=== PATIENT | female | born 1925 | race Caucasian/White ===

== ENCOUNTER 2016-11-25 11:46 | Observation (INO) | payer MEDICARE, OTHER ==
--- NOTE | ~2016-11-25 | HP ---
History And Physical [place] [id number] [facility] [place]. [address] NAME: RENA VILLELA : [birth year] STATUS : ADM Zac PAT#: [id number] AGE: 89 ADM/REG DATE : 11/25/16 MR#: [id number] REPORT SERV DATE: 11/25/16 DICTATED BY: SULEIMAN ESPINOZA DATE: 11/25/16 REPORT STATUS : Draft TRANSCRIBED BY: MODL DATE: 11/25/16 DATE OF ADMISSION: 11/25/2016 REASON FOR ADMISSION: Syncope once again the third time in the last one year. This was at [facility]. Primary care doctor is unclear, used to see Dr. Burroughs, now sees Dr. Osvaldo Carpenter. HISTORY OF PRESENT ILLNESS: This is a very pleasant 89-year-old female. 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 Sees Dr. Carpenter. Has been stable for many years per history. Known history of a back surgery, unclear what type; cataract; eyelid surgery; and toe surgery. The patient comes in with a third episode of syncopizing in the past one year. The patient subjectively tells me the result of her workup in the past was that, she was taking in a zealous amount of antihypertensives and became orthostatic and syncopized. The patient recently had three teeth dentally extracted, was to start amoxicillin, has yet to do that for mitral valve prolapse prophylaxis. The patient was coming out of her car in the [facility] parking lot, felt a little "odd," walked into [facility], started having sweats, palpitations, fell the ground, and came to with positive syncope. Her CT of the brain here just shows subtle deep white matter change. She complains of positive chills. No fevers, no nausea, no vomiting, no diarrhea. Does have some pleuritic, musculoskeletal palpable reproducible chest pain more in the left sternal border. Left costophrenic region is tender to palpation upon compression. Troponin here is negative. The patient states she has some mild shortness of breath yet she is 99% on room air. No cough. Some positive increased frequency urination. Unclear, if she has had any dysuria. REVIEW OF SYSTEMS: Done, see HPI. Otherwise, negative. PAST MEDICAL AND PAST SURGICAL HISTORY: See above. ALLERGIES: APPARENTLY ARE NO KNOWN DRUG ALLERGIES. FAMILY HISTORY: As noted history of hypertension, diabetes, end-stage renal disease apparently in her children. Unclear etiology. HOME MEDICATIONS: See MAR. Continue what is relevant. SOCIAL HISTORY: Positive secondhand smoke exposure. No personal smoking, active drug use or past drug use, alcohol use either. History And Physical [address] [address] NAME: RENA VILLELA : [birth year] STATUS : ADM Zac PAT#: [id number] AGE: 89 ADM/REG DATE : 11/25/16 MR#: [id number] REPORT SERV DATE: 11/25/16 DICTATED BY: SULEIMAN ESPINOZA DATE: 11/25/16 REPORT STATUS : Draft TRANSCRIBED BY: SONIA DATE: 11/25/16 OBJECTIVE: VITAL SIGNS: Going to be 139/57, 98.2 temp, 75 pulse, 16 respirations, 98% on room air. GENERAL: No acute distress. HEENT: PERRLA. No scleral icterus. CARDIOVASCULAR: I did not appreciate any murmur. No carotid bruit auscultated. I did though at one point hear a regular rate, but irregular rhythm possibly consistent with her PACs on her EKG. RESPIRATORY: Decreased breath sounds bibasilarly. No wheezes. No crackles. ABDOMEN: She does have tenderness to palpation, more in the hypogastric region, periumbilical region, or root. No rebound tenderness. No peritoneal signs. EXTREMITIES: No edema, no ecchymosis. NEURO: She states it is 1917, then she laughed after I said was a 2017, she said yes. I do not know her baseline. This may be it. She says it is November. She says she is at [facility]. PSYCH: Unable to assess given her neuro status. LABORATORY DATA: White count 7.4, hemoglobin 12.2, 169,000 platelets, 3.6 potassium, 28 bicarb, 1.21 creatinine, 28 BUN, 139 sodium, 123 sugar. Troponin is negative. Urinalysis positive, 37 white blood cells, positive leukocyte esterase, but yet has significant amount of epithelial cells above 20. CT of the brain, see above. EKG, she has normal sinus rhythm, but then has some irregular PACs causing irregularity of her rhythm. I do not appreciate any ischemic ST-T changes. ASSESSMENT: 1. Syncope possibly due to orthostasis, possible occult arrhythmia. Not otherwise detected, exacerbated by sepsis likely causing orthostasis. 2. Urinary tract infection. 3. Recent dental extraction, is yet to start her amoxicillin for mitral valve prolapse prophylaxis. 4. Chronic kidney disease versus prerenal azotemia. 5. A and O really 3/4. She does not know the exact year. She does know she is at [facility], unclear if this is her baseline. PLAN: We will go ahead and admit this patient under observation. I will go ahead and panculture her given her syncope and UTI, pyuria present. That may just be a false positive given significant epithelial cells. As a result, I will repeat her urinalysis and rather start her on Augmentin for which she was supposed to take amoxicillin, she has not filled that yet. That will cover for anaerobic bacteria in her oropharynx, could not fully appreciate her teeth, would defer to the next physician at that time. Given this is her third episode, she may benefit if her echo and ultrasound of her carotids given recurrence is negative, a possible Holter monitor. We would try to get records from [facility] as well as her PCP regarding the status of her stable suspected brain tumor for which was not elucidated on her CT of the brain. See rest of my orders. All questions were answered. I will empirically place her on a statin in case her carotid ultrasound returns positive. Did complain of some reproducible musculoskeletal chest pain in the left costophrenic region and left sternal border. Troponin is negative. We will trend a couple more sets of CK-MB and History And Physical [address] [place]. [address] NAME: RENA VILLELA : [birth year] STATUS : ADM Zac PAT#: [id number] AGE: 89 ADM/REG DATE : 11/25/16 MR#: [id number] REPORT SERV DATE: 11/25/16 DICTATED BY: SULEIMAN ESPINOZA DATE: 11/25/16 REPORT STATUS : Draft TRANSCRIBED BY: MODL DATE: 11/25/16 cardiac risk factors would be secondhand smoke exposure, hypertension, and her age. Consider possible stress test if this were to ever occur again. All questions were answered. It took well over 60 minutes to do. Reference [employer]. WST/MODL Suleiman Espinoza DO / [id number] CC: Suleiman Espinoza DO
--- NOTE | ~2016-11-25 | DS ---
Discharge Summary [facility] [address] [place]. [address] NAME: RENA VILLELA : [birth year] STATUS : DIS Zac PAT#: [id number] AGE: 89 ADM/REG DATE : 11/25/16 MR#: [id number] REPORT SERV DATE: 11/27/16 DICTATED BY: ARJUN MCGOVERN II DATE: 11/26/16 REPORT STATUS : Draft TRANSCRIBED BY: MODL DATE: 11/26/16 ADMISSION DATE: 11/25/2016 DISCHARGE DATE: 11/26/2016 DISCHARGE DIAGNOSES: 1. Recurrent syncope this time likely orthostatic due to dehydration. 2. Mild prerenal azotemia, likely dehydration in the setting of recent tooth extraction and decreased p.o. intake. 3. Chronic diastolic congestive heart failure. 4. Mitral valve prolapse. 5. Hypertension. BRIEF HISTORY OF PRESENT ILLNESS: The patient is an 89-year-old female with the above past medical history who presented to [facility] due to syncopal episode concerning for orthostasis. For detailed history and physical examination, please see Dr. Rolon's note from 11/25/2016. HOSPITAL COURSE: On admission, the patient's vitals were essentially within normal limits. She was not bradycardic and her blood pressure was actually slightly high. Orthostatic blood pressure readings were between 150 and 170 systolic and heart rate between 77 and 90, so did not qualify for orthostasis. By the patient's symptoms, she had been not eating and drinking as much due to recent tooth extraction. She subsequently went to [facility] and became dizzy and had a slow controlled fall with assistance with family down to the ground and she is not sure she entirely passed out. Her symptoms quickly resolved and she had no symptoms of chest pain, shortness of breath or palpitations. Telemetry here has been unremarkable, EKG and sinus rhythm with infrequent PACs. Troponin has been normal. Her BUN was 28 and creatinine 1.21 which actually came down with IV fluids to 22 and 0.97. She has already had carotid duplex and echocardiogram last month with normal carotids and echo showing mild diastolic dysfunction. At this point in time it seems likely she was mildly dehydrated in the setting of recent procedure. So we will continue her home medications and encourage adequate hydration. She will need to follow with her PCP, Dr. Osvaldo Carpenter in one to two weeks. DISCHARGE MEDICATIONS: 1. Norvasc 5 mg p.o. b.i.d. 2. Amoxicillin 500 mg t.i.d. to complete 7 days of therapy which was started on 11/25. 3. Vitamin D 5000 units p.o. daily. 4. Lopressor 12.5 mg p.o. b.i.d. 5. Clonidine 0.1 mg p.o. b.i.d. 6. Garlic tab daily. 7. Symbicort two puffs inhaled daily p.r.n. shortness of breath. 8. Centrum tab daily. 9. Probiotic daily. DISCHARGE INSTRUCTIONS: The patient will follow Dr. Osvaldo Carpenter in one to two weeks. Discharge Summary [address] [place]. [address] NAME: RENA VILLELA : [birth year] STATUS : DIS Zac PAT#: [id number] AGE: 89 ADM/REG DATE : 11/25/16 MR#: [id number] REPORT SERV DATE: 11/27/16 DICTATED BY: ARJUN MCGOVERN II DATE: 11/26/16 REPORT STATUS : Draft TRANSCRIBED BY: SONIA DATE: 11/26/16 ROXY/SONIA Arjun Mcgovern II, MD / [id number] CC: MD Osvaldo De Leon II, M.D.
[~2016-11-25 11:46] MED LIST: AMOXIL500 MG PO; CAT1 PO; CAT2 PO; CAT3 PO; CENTRUM PO; CIP5 PO; D 5000 PO; DIOVAN HC2 PO; GARLIC PO; LOP25 PO; MIRALAXPKT PO; MULTIPLE VIT PO; MULTIVIT/MIN PO; NEXIUM40 PO; NORV5 PO; PROBIOTIC PO; SYMBICORT 160/41 INH INH; SYMBICORT 160/41 INH PO; VITAMIN D31000 UNIT PO
[2016-11-25 12:14] LABS: ASCORBIC ACID (UR NOT ORDER) NEG (NEG); BILIRUBIN, URINE NEGATIVE (NEG); ER URINALYSIS TAT 0 Hrs 09 Mins; KETONE, URINE NEGATIVE (NEG); LEUKOCYTE ESTERASE(NOT OR LARGE (NEG); NITRITE (URINE) NEG (NEG); WBC (NOT ORDERED) (RFLEX) 37 (0-5)
[2016-11-25 12:18] LABS: INTERNATIONAL NORMAL RATI 1.1 UNITS (-); PARTIAL THROMBO TIME 28.5 SEC (22.5-37.2); PROTIME (NOT ORD) 14.5 SEC (12.0-14.5)
[2016-11-25 12:19] LABS: BASOPHILS 0.1 %; BASOPHILS ABSOLUTE 0.01 10/3/uL (0.0-0.16); EOSINOPHILS 0.5 %; EOSINOPHILS ABSOLUTE 0.04 10/3/uL (0.0-0.53); HEMATOCRIT 34.5 % (36.0-48.0); HEMOGLOBIN 12.2 g/dL (12.0-16.0); IMMATURE GRANULOCYTES 0.4 %; IMMATURE GRANULOCYTES ABSOLUTE 0.03 10/3/uL (0.0-0.11); LYMPHOCYTES 22.1 %; LYMPHOCYTES ABSOLUTE 1.63 10/3/uL (0.67-4.30); MEAN CORPUS HGB CONC 35.4 g/dL (32.0-36.0); MEAN CORPUSCULAR VOLUME 90.6 fL (80-100); MEAN PLATELET VOLUME 9.8 fL (9.2-13.0); MONOCYTES 6.6 %; MONOCYTES ABSOLUTE 0.49 10/3/uL (0.21-1.20); NEUTROPHILS 70.3 %; NEUTROPHILS ABSOLUTE 5.19 10/3/uL (2.02-8.40); PLATELET COUNT 169 10/3/uL (150-400); RBC DISTRIBUTION WIDTH 13.2 % (12.0-16.0); RED CELL COUNT 3.81 10/6/uL (4.0-5.6); WHITE BLOOD CELLS 7.4 10/3/uL (4.5-10.5)
[2016-11-25 12:20] LABS: ER CBC TAT 0 Hrs 15 Mins; MANUAL DIFF NO %
[2016-11-25 12:33] LABS: BUN (BLOOD UREA NITROGEN) 28 MG/DL (6-23); CALCIUM, SERUM 9.7 MG/DL (8.5-10.4); CHEST PAIN PROFILE TAT 0 Hrs 29 Mins; CHLORIDE, SERUM 98 MMOL/L (96-112); CO2 (CARBON DIOXIDE) 28 MMOL/L (24-34); CREATININE 1.21 MG/DL (0.55-1.02); GFR AFRICAN AMERICAN 46 ML/MIN (>=60); GFR NON AFRICAN AMERICAN 40 ML/MIN (>=60); GLUCOSE, SERUM 123 MG/DL (60-99); POTASSIUM, SERUM 3.6 MMOL/L (3.5-5.3); SODIUM, SERUM 139 MMOL/L (135-148); TROPONIN I 0.04 NG/ML (<0.05)
[2016-11-25 18:15] LABS: CK-MB 1.1 NG/ML; CPK 66 U/L (0-200); TROPONIN I 0.03 NG/ML (<0.05)
[2016-11-25 18:51] LABS: PROCALCITONIN 0.11 ng/mL (<0.5)
[2016-11-26 01:42] LABS: CK-MB 0.7 NG/ML; CPK 54 U/L (0-200); TROPONIN I 0.04 NG/ML (<0.05)
[2016-11-26 01:43] LABS: FOLATE 24.9 NG/ML (>5.2)
[2016-11-26 04:46] LABS: ASCORBIC ACID (UR NOT ORDER) NEG (NEG); BILIRUBIN, URINE NEGATIVE (NEG); KETONE, URINE NEGATIVE (NEG); LEUKOCYTE ESTERASE(NOT OR SMALL (NEG); WBC (NOT ORDERED) (RFLEX) 3 (0-5)
[2016-11-26 06:42] LABS: HEMATOCRIT 36.2 % (36.0-48.0); HEMOGLOBIN 12.4 g/dL (12.0-16.0); MEAN CORPUS HGB CONC 34.3 g/dL (32.0-36.0); MEAN CORPUSCULAR HEMOGLOB 31.4 pg (26.0-34.0); MEAN CORPUSCULAR VOLUME 91.6 fL (80-100); PLATELET COUNT 185 10/3/uL (150-400); RBC DISTRIBUTION WIDTH 13.2 % (12.0-16.0); RED CELL COUNT 3.95 10/6/uL (4.0-5.6); WHITE BLOOD CELLS 4.5 10/3/uL (4.5-10.5)
[2016-11-26 06:45] LABS: MANUAL DIFF YES %
[2016-11-26 07:00] LABS: A/G RATIO 0.9 (0.7-1.9); ALBUMIN 3.6 G/DL (3.5-5.0); ALKALINE PHOSPHATASE 74 U/L (45-117); CHLORIDE, SERUM 102 MMOL/L (96-112); CO2 (CARBON DIOXIDE) 26 MMOL/L (24-34); CPK 61 U/L (0-200); CREATININE 0.97 MG/DL (0.55-1.02); GFR AFRICAN AMERICAN 60 ML/MIN (>=60); GFR NON AFRICAN AMERICAN 52 ML/MIN (>=60); GLOBULIN 4.2 G/DL (2.5-4.1); GLUCOSE, SERUM 114 MG/DL (60-99); POTASSIUM, SERUM 3.8 MMOL/L (3.5-5.3); SGOT(AST) 19 U/L (5-40); SGPT(ALT) 21 U/L (5-65); SODIUM, SERUM 139 MMOL/L (135-148); TOTAL BILIRUBIN 0.3 MG/DL (0-1.2); TOTAL PROTEIN 7.8 G/DL (6.0-8.5); TROPONIN I 0.03 NG/ML (<0.05)
[2016-11-26 07:01] LABS: BUN (BLOOD UREA NITROGEN) 22 MG/DL (6-23)
[2016-11-26 07:11] LABS: EOSINOPHILS 1 %; EOSINOPHILS ABSOLUTE (CALC) 0.05 10/3/uL (0.0-0.53); LYMPHOCYTES 30 %; LYMPHOCYTES ABSOLUTE (CALC) 1.35 10/3/uL (0.67-4.30); MONOCYTES 12 %; MONOCYTES ABSOLUTE (CALC) 0.54 10/3/uL (0.21-1.20); NEUTROPHILS ABSOLUTE (CALC) 2.57 10/3/uL (2.02-8.40); OVALOCYTES 1+ (3-10/OIF) (0-2/OIF); PLATELET ESTIMATE ADQ (ADEQUATE); SEGMENTED NEUTROPHIL (0) 57 %; TOTAL NUCLEATED CELLS 100
[2017-06-17] MEDS ORDERED: SYMBICORT 160/41 INH PO (16:36)
[2017-06-17] MEDS ORDERED: FERROUS SULF325 M1 PO (16:36)
[2017-06-17] MEDS ORDERED: LOP25 PO (16:37)
[2017-06-17] MEDS ORDERED: CENTRUM PO (16:37)
[2017-06-17] MEDS ORDERED: D 5000 PO (16:37)
[2017-06-17] MEDS ORDERED: NORV5 PO (16:37)
[2017-06-20] MEDS ORDERED: K500 PO (14:13)
== END 2016-11-26 18:24 | disposition home or self-care (01) ==
LOC: ER 11:46 → CDU1 14:10 → CDU2 14:51
PROVIDERS: Emergency Medicine; Internal Medicine
DX: R55 Syncope and collapse (principal); R79.89 Other specified abnormal findings of blood chemistry; N39.0 Urinary tract infection, site not specified; M19.90 Unspecified osteoarthritis, unspecified site; J44.9 Chronic obstructive pulmonary disease, unspecified; I11.0 Hypertensive heart disease with heart failure; I50.32 Chronic diastolic (congestive) heart failure; I34.0 Nonrheumatic mitral (valve) insufficiency; Z79.2 Long term (current) use of antibiotics; Z79.52 Long term (current) use of systemic steroids; Z79.899 Other long term (current) drug therapy; Z77.22 Contact with and (suspected) exposure to environmental tobacco smoke (acute) (chronic)
CPT/HCPCS: 70450; 71020; 80048; 80053; 81001; 82140; 82550; 82553; 82607; 82746; 82962; 83036; 83735; 84100; 84145; 84443; 84484; 85025; 85610; 85730; 87040; 87086; 93005; 96372; 96374; 97161-GP; 99285; A9270-GY; G0378; G8978-CJ-GP; G8979-CI-GP